=== PATIENT | female | born 1980 | race Hispanic/Latino ===

== ENCOUNTER 2020-06-10 12:38 | Outpatient (CLI) | payer MEDICAID ==
--- NOTE | 2020-06-10 17:45 | Mammography Report ---
BILATERAL DIGITAL DIAGNOSTIC MAMMOGRAM WITH CAD CONVENTIONAL, 06/10/2020 LEFT LIMITED BREAST ULTRASOUND CLINICAL INFORMATION / INDICATION: Left breast lump. TECHNIQUE: Digital bilateral mammographic imaging was performed. Spot compression views were obtained . Limited ultrasound was performed. This examination was interpreted with the benefit of Computer-Aid ed Detection (CAD) analysis. COMPARISON: None currently available. FINDINGS: Breast Density: The breasts are heterogeneously dense, which may obscure small masses. MAMMOGRAPHIC FINDINGS: No dominant mass, suspicious calcifications, or architectural distortion in th e right breast. There is a 2.5 cm circumscribed round nodule in the left upper outer quadrant anterio rly at the site of the palpable abnormality. ULTRASOUND FINDINGS: Targeted ultrasound evaluation was performed of the area of interest. There is a 2.2 cm rounded complex cyst at the 1:00 position 2 cm from the nipple at the site of the palpable and mammographic abnormality. The lesion has a diffusely thickened wall and demonstrates diffuse mobi le internal echoes. No rounded solid nodular component is seen and there is no internal vascularity o n Doppler exam. IMPRESSION: 2.2 cm complex cystic mass in the left superior breast at the site of the palpable abnorm ality. Biopsy/aspiration is recommended. Follow up recommendation: Surgical consult BI-RADS Category 4: Suspicious for Malignancy. BI-RADS Category 4A-low suspicion for malignancy. A "normal" or negative report should not discourage follow up or biopsy of a clinically significant f inding. A written summary of these findings will be mailed to the patient. The patient will be entered into a mammography reporting system which will generate a reminder letter for the patient's next appointmen t at the appropriate interval. According to the [employer], yearly mammograms are recommended starting at age 40 and continuing as long as a woman is in good health. Breast MRI is recommended for women with an ramez roximately 20-25% or greater lifetime risk of breast cancer, including women with a strong family his tory of breast or ovarian cancer and women who have been treated for Hodgkin's disease. Signer Name: Marty Goldberg MD Signed: 06/10/2020 5:40 PM Workstation Name: [id number]
== END 2020-06-10 12:39 | disposition home or self-care (01) ==
LOC: MAMMO 12:38
PROVIDERS: ATTEND Advanced Practice Midwife
DX: N63.21 Unspecified lump in the left breast, upper outer quadrant (principal); N60.02 Solitary cyst of left breast
CPT/HCPCS: 77066

== ENCOUNTER 2020-07-10 07:56 | Outpatient (CLI) | payer MEDICAID ==
--- NOTE | 2020-07-10 09:04 | Mammography Report ---
DIGITAL DIAGNOSTIC MAMMOGRAM WITH CAD CONVENTIONAL, 07/10/2020 CLINICAL INFORMATION / INDICATION: Status post left breast mass biopsy. TECHNIQUE: Digital left mammographic imaging was performed. This examination was interpreted with the benefit of Computer-aided Detection analysis. COMPARISON: 06/10/2020 FINDINGS: Breast Density: The breasts are heterogeneously dense, which may obscure small masses. The previously described 1:00 left breast mass is not as well-visualized compared to the prior study. Expected postbiopsy changes are seen at the site of the mass with concordant clip placement. IMPRESSION: Concordant biopsy clip placement in the left breast. Please correlate with the pathology report. Follow up recommendation: Clinical exam Post biopsy imaging. A "normal" or negative report should not discourage follow up or biopsy of a clinically significant f inding. A written summary of these findings will be mailed to the patient. The patient will be entered into a mammography reporting system which will generate a reminder letter for the patient's next appointmen t at the appropriate interval. According to the [employer], yearly mammograms are recommended starting at age 40 and continuing as long as a woman is in good health. Breast MRI is recommended for women with an ramez roximately 20-25% or greater lifetime risk of breast cancer, including women with a strong family his tory of breast or ovarian cancer and women who have been treated for Hodgkin's disease. Signer Name: Patrick Horn MD Signed: 07/10/2020 9:00 AM Workstation Name: [employer]
== END 2020-07-10 07:57 | disposition home or self-care (01) ==
LOC: SPVWC 07:56
PROVIDERS: ATTEND Surgery
DX: R92.8 Other abnormal and inconclusive findings on diagnostic imaging of breast (principal)

== ENCOUNTER 2020-07-11 08:14 | Outpatient (CLI) | payer MEDICAID | END 2020-07-11 08:15 | disposition home or self-care (01) | LOC: LABHHL 08:14 | PROVIDERS: ATTEND Surgery | DX: N63.20 Unspecified lump in the left breast, unspecified quadrant (principal) | CPT/HCPCS: 88112; 88305 ==

== ENCOUNTER 2021-01-28 08:46 | Outpatient (CLI) | payer MEDICAID ==
--- NOTE | 2021-01-28 10:14 | Mammography Report ---
DIGITAL DIAGNOSTIC MAMMOGRAM WITH CAD CONVENTIONAL, 01/28/2021 CLINICAL INFORMATION / INDICATION: Patient presents for six-month follow-up following benign left leo ast biopsy. ABNORMAL MAMMO R92.8 TECHNIQUE: Digital left mammographic imaging was performed. This examination was interpreted with the benefit of Computer-aided Detection analysis. COMPARISON: Prior mammogram 06/10/2020 and 07/10/2020 FINDINGS: Breast Density: The breasts are heterogeneously dense, which may obscure small masses. No dominant mass, suspicious calcifications or architectural distortion in the left breast. There is a biopsy clip in the upper outer quadrant of the left breast, anterior depth. The previously seen mass at this site has resolved following biopsy. IMPRESSION: 1. No suspicious mammographic abnormality identified in the left breast. Follow up recommendation: Back to schedule. BI-RADS Category 2: Benign. A "normal" or negative report should not discourage follow up or biopsy of a clinically significant f inding. A written summary of these findings will be mailed to the patient. The patient will be entered into a mammography reporting system which will generate a reminder letter for the patient's next appointmen t at the appropriate interval. According to the [employer], yearly mammograms are recommended starting at age 40 and continuing as long as a woman is in good health. Breast MRI is recommended for women with an ramez roximately 20-25% or greater lifetime risk of breast cancer, including women with a strong family his tory of breast or ovarian cancer and women who have been treated for Hodgkin's disease. Signer Name: Carla Church MD Signed: 01/28/2021 10:09 AM Workstation Name: [id number]
== END 2021-01-28 08:47 | disposition home or self-care (01) ==
LOC: SPVWC 08:46
PROVIDERS: ATTEND Surgery
DX: R92.8 Other abnormal and inconclusive findings on diagnostic imaging of breast (principal)

== ENCOUNTER 2021-12-09 14:11 | Outpatient (CLI) | payer MEDICAID ==
--- NOTE | 2021-12-11 10:12 | Mammography Report ---
DIGITAL SCREENING MAMMOGRAM WITH TOMOSYNTHESIS WITH CAD, 12/09/2021 CLINICAL INFORMATION / INDICATION: Routine Screening Mammography. TECHNIQUE: Digital bilateral 2D and 3D mammography with tomosynthesis was obtained in the craniocaud al and mediolateral oblique projections. Computer-Aided Detection (CAD) analysis was used for interp retation of this study. COMPARISON: 01/28/2021, 07/10/2020, 06/10/2020 FINDINGS: Breast Density: The breasts are heterogeneously dense, which may obscure small masses. No dominant mass, suspicious calcifications, or architectural distortion in either breast. An upper outer anterior left breast biopsy clip is again seen. There has been no significant interval change. IMPRESSION: No mammographic evidence of malignancy. Follow up recommendation: Routine yearly screening mammogram. BI-RADS Category 2: BENIGN. A "normal" or negative report should not discourage follow up or biopsy of a clinically significant f inding. A written summary of these findings will be mailed to the patient. The patient will be entered into a mammography reporting system which will generate a reminder letter for the patient's next appointmen t at the appropriate interval. The [employer] recommends yearly mammograms starting at age 40 and continuing as l nel as a woman is in good health. Breast MRI is recommended for women with an approximate 20-25% or greater lifetime risk of breast cancer, including women with a strong family history of breast or ova sidney cancer or who have been treated for Hodgkin's disease. Signer Name: Patrick Horn MD Signed: 12/11/2021 10:08 AM Workstation Name: [employer]
== END 2021-12-09 14:12 | disposition home or self-care (01) ==
LOC: SPVWC 14:11
PROVIDERS: ATTEND Advanced Practice Midwife
DX: Z12.31 Encounter for screening mammogram for malignant neoplasm of breast (principal)
CPT/HCPCS: 77063; 77067